=== PATIENT | female | born 1970 | race Caucasian/White ===

== ENCOUNTER 2017-05-29 17:10 | Emergency (ER) | payer OTHER ==
[2017-05-29 17:28] LABS: URINE BLOOD (Dip) POC Negative (NEGATIVE); URINE GLUCOSE (Dip) POC Negative (NEGATIVE); URINE KETONES (Dip) POC Negative (NEGATIVE); URINE LEUKOCYTE EST (Dip) POC Trace (NEGATIVE); URINE NITRITE (Dip) POC Negative (NEGATIVE); URINE TOTAL PROTEIN POC Negative (NEGATIVE)
[2017-05-29 17:28] LABS: URINE PH (Dip) POC 5.5 (5.0-8.5)
== END 2017-05-29 17:51 | disposition home or self-care (01) ==
LOC: E/R 17:10
DX: R30.0 Dysuria (principal)
CPT/HCPCS: 81003; 99283

== ENCOUNTER 2018-06-07 17:14 | Emergency (ER) | payer OTHER ==
[2018-06-07] MEDS: KETOROLAC 30 MG INJ IM (18:41)
== END 2018-06-07 18:53 | disposition home or self-care (01) ==
LOC: FTE 17:14
DX: S16.1XXA Strain of muscle, fascia and tendon at neck level, initial encounter (principal); X58.XXXA Exposure to other specified factors, initial encounter; Y92.9 Unspecified place or not applicable
CPT/HCPCS: 81025; 96372; 99284-25